=== PATIENT | female | born 1990 | race African-American/Black ===

== ENCOUNTER 2020-04-14 07:18 | Inpatient (IN) | payer OTHER ==
[~2020-04-14] VITALS: Ht 152.4 cm; Wt 89.8 kg
[~2020-04-14 07:18] MED LIST: CIPRO500 MG PO; DOXYCYCLINE 10100 MG PO; IBUPROFEN 600600 M1 PO; MIRENA1 EACH IMPLANT; NAPROSYN500 MG PO; NOHOMEMEDICATIONS; NORFLEX100 MG PO; ZOFRAN ODT4 MG DISSOLVE
[2020-04-14 07:26] VITALS: BP 138/78
[2020-04-14] MEDS ORDERED: ERYTHROMYCIN E3.5 G2 OPHTHALMIC (07:31)
[2020-04-14] MEDS ORDERED: RAYOS5 MG PO (07:31)
[2020-04-14] MEDS ORDERED: CEFDINIR300 MG PO (07:32)
[2020-04-14 08:22] LABS: HEMATOCRIT 38.1 % (37.0-47.0); HEMOGLOBIN 13.3 gm/dL (12.0-15.0); MCH 29.1 pg (26.0-34.0); MCHC 34.9 g/dL (28.0-37.0); MCV 83.5 fL (80.0-100.0); MPV 8.9 fl. (7.2-11.1); NUCLEATED RBCS 0 /100WBC; PLATELET COUNT* 143 thou/uL (150-400); RBC 4.57 mil/uL (4.20-5.00); RDW-CV 13.6 % (10.5-14.5); WBC 14.2 thou/uL (4.0-11.0)
[2020-04-14 08:27] LABS: CALCIUM 8.6 mg/dL (8.5-10.1); CREATININE 1.1 mg/dL (0.6-1.3); POTASSIUM 3.1 mmol/L (3.5-5.1)
[2020-04-14 08:31] LABS: ALBUMIN 3.6 g/dL (3.4-5.0); TOTAL BILIRUBIN 0.9 mg/dL (<0.1-1.0); TOTAL PROTEIN 8.5 g/dL (6.4-8.2)
[2020-04-14 09:36] LABS: ABSOLUTE EOSINOPHILS 0.3 thou/uL (0.0-0.7); ABSOLUTE LYMPHOCYTES 0.7 thou/uL (0.8-5.3); ABSOLUTE NEUTROPHILS 13.2 thou/uL (1.6-8.1); PLATELET ESTIMATE ADEQUATE
[2020-04-14 11:20] VITALS: BP 151/95
[2020-04-14 11:35] VITALS: BP 146/83
--- NOTE | 2020-04-14 12:06 | NUR ---
PT ADMITTED WITH PERIORBITAL EDEMA TO RIGHT EYE AND MOVING TOWARDS LEFT EYE. RIGHT EYE COMPLETELY SHUT, CANNOT OPEN IT. PT ALERT AND ORIENTED. PT ON ROOM AIR, VITALS STABLE. PT PAIN 10/10, ICE GIVEN TO REDUCE PAIN AT THIS TIME. PICTURES TAKEN OF EDEMA IN BOTH EYES. PT ORIENTED TO ROOM. MEDS GIVEN ORDERED. PT RESTING IN BED AND WISHES TO TAKE A NAP. FALL RISK PRECAUTIONS IN PLACE. WILL CONTINUE TO MONITOR.
[2020-04-14 15:39] VITALS: BP 156/99
--- NOTE | 2020-04-14 17:00 | NUR ---
PT REMAINED ALERT AND ORIENTED. PT RESTING IN BED. PT HAS A LOW TEMP FEVER OF 100.7, WILL RECHECK, MEDS GIVEN ORDERED. FALL RISK PRECAUTIONS IN PLACE. HOURLY ROUNDING COMPLETED. WILL CONTINUE TO MONITOR.
[2020-04-14 19:45] VITALS: BP 142/93
--- NOTE | 2020-04-15 03:24 | NUR ---
PATIENT HAS REMAINED ALERT AND ORIENTED X 4 THROUGHOUT THE SHIFT AND RESTING QUIETLY ON HOURLY ROUNDS. RIGHT EYE REMAINS ESSENTIALLY SWOLLEN SHUT. LEFT EYE (AND PER-ORBITAL) SWOLLEN BUT NO VISUAL LOSS. ORDERED MEDICATIONS INCLUDING BENADRYL, STEROIDS AND ANTIBIOTICS PROVIDED ORDERED. PATIENT ALSO RECEIVED TYLENOL AND TRAMADOL FOR EYE DISCOMFORT. ICE PACK KEPT COLD AND COOL WATER CLOTHES AVAILABLE AT BEDSIDE. VITAL SIGNS STABLE. CONTINUE TO MONITOR.
--- NOTE | 2020-04-15 05:25 | NUR ---
AM ANTIBIOTIC COMPLETED. PATIENT FEELS SWELLING AROUND RIGHT EYE SOMEWHAT IMPROVED BUT HAS SHIFTED TO RIGHT CHEEK. TRAMADOL EARLY AM FOR PAIN. NO OTHER CHANGES FROM PREVIOUS ENTRY. HOURLY ROUNDS COMPLETED. CONTINUE TO MONITOR.
[2020-04-15 07:49] LABS: HEMATOCRIT 37.1 % (37.0-47.0); MCH 29.3 pg (26.0-34.0); MCV 83.5 fL (80.0-100.0); MPV 9.5 fl. (7.2-11.1); RBC 4.44 mil/uL (4.20-5.00); RDW-CV 13.7 % (10.5-14.5); WBC 13.9 thou/uL (4.0-11.0)
[2020-04-15 07:58] LABS: CALCIUM 8.6 mg/dL (8.5-10.1); CREATININE 1.1 mg/dL (0.6-1.3); POTASSIUM 3.8 mmol/L (3.5-5.1)
[2020-04-15 08:15] VITALS: BP 161/86
[2020-04-15 16:58] VITALS: BP 143/88
[2020-04-15 20:00] VITALS: BP 127/82
--- NOTE | 2020-04-15 20:09 | NUR ---
I ASSUMED CARE OF THE PATIENT AT 0700. SHE IS ALERT AND ORIENTED X4 AND IS UP AD PURA. SHE IS STEADY ON HER FEET. BED IS IN THE LOW LOCKED POSITION AND CALL LIGHT IS IN REACH. HOURLY ROUNDING IS COMPLETED AND PATIENT NEEDS ARE MET. PAIN IS MANAGED WITH PRN MEDS. IV INFILTRATED AND NOC HOUSE SUP WAS ABLE TO ESTABLISH NEW ACCESS. ICE PACK AND COOL WASH CLOTHES WERE OFFERED ALL SHIFT. SHE IS CURIOUS ABOUT GETTING HER FMLA PAPERS FILLED OUT SO SHE DOESN'T LOSE HER JOB. DR HAYS STOPPED IN LATER IN THE DAY WHEN THE PATIENT REQUESTED THAT SHE SEE THE DIFFERENCE IN HER SWELLING. NEW ORDERS WERE OBTAINED. SHE IS FROM HOME. WILL CONTINUE TO MONITOR.
--- NOTE | 2020-04-16 05:03 | NUR ---
PT SLEPT WELL OVERNIGHT, RECEIVED IV ABX, BENADRYL, STEROIDS ORDERED. USING ICE PACK AND WET COOL COMPRESSES TO FACE FOR COMFORT AND TO REDUCE EDEMA. UP AD PURA IN ROOM. L HAND SL IV. ID FOLLOWING FOR ABX TREATMENT. AM LABS. ABLE TO USE CALL LITE AND MAKE NEEDS KNOWN.
--- NOTE | 2020-04-16 07:55 | CON ---
[address] [address] CONSULTATION Name: CHARMAINE STRANGE Room: [address] IN M.R.#: [id number] Admission: 04/14/20 Attend Phys: Catia Dewitt MD Discharge: Date of : 86 Report #: [id number] THIS REPORT FOR: //name// cc: ARIANNE Manley family physician/PCP ARIANNE - Sindhu family physician/PCP ~ THIS REPORT FOR: //name// CC: ARIANNE physician/PCP Catia Dewitt DATE OF SERVICE: 04/15/2020 INFECTIOUS DISEASE CONSULTATION ATTENDING PHYSICIAN: Dr. Dewitt. REASON FOR EVALUATION: Suspected increase of right-sided preseptal cellulitis. HISTORY OF PRESENT ILLNESS: Chart reviewed, the patient examined. This is a 29-year-old woman without significant medical history who believes she sustained an injury, right upper eyelid was bitten by a spider the day prior to her admission, developed significant inflammatory changes including swelling. Serial photographs suggest mostly localized to the upper lid then became a periorbital involvement and then it extended to the left side as described it as painful, it is swollen and the extent that she is unable to open it. Had some fever while she was here. Denies significant pulmonary or gastrointestinal related complaints. She was empirically started on therapy with vancomycin and ceftriaxone. She is not toxic. Imaging suggested more diffuse edema as opposed to anything localized, no fluid collections. ALLERGIES: None known. MEDICATIONS: Include loratadine, pantoprazole, vancomycin, enoxaparin, ibuprofen, tramadol, methylprednisolone, famotidine and ceftriaxone. PAST MEDICAL HISTORY: Otherwise unremarkable . SOCIAL HISTORY: She smokes half-pack per day. No illicit drug use. Occasional ethanol. FAMILY HISTORY: Noncontributory. REVIEW OF SYSTEMS: Otherwise, unremarkable 10-point review of system with exception of the above. PHYSICAL EXAMINATION: [place] [id number] CONSULTATION Name: CHARMAINE STRANGE Room: [address] IN [facility]#: [id number] Admission: 04/14/20 Attend Phys: Catia Dewitt MD Discharge: Date of : 86 Report #: [id number] GENERAL: She is alert, cooperative and appropriate. She is in [id number] distress. She is sitting up in a chair. She is well-nourished. VITAL SIGNS: T-max 100.7, more recently 99.6, pulse 84, respirations 18, blood pressure 142/93. SKIN: Warm, dry. HEENT: Remarkable for marked inflammatory changes noted with prominent swelling around the right side of the face in particular periorbital area that extends across the midline. It is tender, able to partially open the eye, she can see. NECK: Supple. LUNGS: Clear to auscultation bilaterally. HEART: Regular rate and rhythm without murmur. ABDOMEN: Soft, nontender, nondistended. EXTREMITIES: No cyanosis. GENITOURINARY AND RECTAL: Deferred. LABORATORY DATA: Sed rate of 24. CRP of 147. Blood cultures sterile thus far. Electrolytes: Sodium 139, potassium 3, chloride 106, bicarbonate 27, anion gap of 6, BUN and creatinine of 14 and 1.1, glucose of 135. Estimated GFR of 70. CBC: White count of 13.9, hemoglobin and hematocrit of 13.0 and 37.1, platelets of 138. A CT of the sinuses, diffuse significant soft tissue swelling and subcutaneous thickening and stranding around the right frontal, right parietal, right periorbital and right facial soft tissues consistent with focal inflammation, no fluid collection. Lactic acid 1.6. Liver functions otherwise unremarkable. Total protein of 8.5, albumin of 3.6. test negative. assessment and plan: Preseptal cellulitis with periorbital inflammation involving the right-sided. Continue empiric antimicrobial therapy, I think the way the evidence really favors an infectious etiology and I guess cannot entirely exclude a hypersensitivity, although it would be somewhat asymmetric and localized. She is on corticosteroids as well. Continue to monitor expectantly. At this point, she is not toxic, monitor any signs and symptoms. We will add incentive spirometry. <ELECTRONICALLY SIGNED> By: Brooks Silva MD 04/16/20 [id number] Silva MD /nt
[2020-04-16 08:02] VITALS: BP 173/99
[2020-04-16 08:35] LABS: HEMOGLOBIN 12.6 gm/dL (12.0-15.0); MCH 29.1 pg (26.0-34.0); MCHC 35.1 g/dL (28.0-37.0); MCV 82.9 fL (80.0-100.0); RBC 4.34 mil/uL (4.20-5.00); RDW-CV 13.5 % (10.5-14.5); WBC 14.9 thou/uL (4.0-11.0)
[2020-04-16 08:53] LABS: ALBUMIN 2.9 g/dL (3.4-5.0); CALCIUM 8.9 mg/dL (8.5-10.1); CREATININE 1.1 mg/dL (0.6-1.3); MAGNESIUM 2.4 mg/dL (1.8-2.4); TOTAL BILIRUBIN 0.6 mg/dL (<0.1-1.0); TOTAL PROTEIN 7.5 g/dL (6.4-8.2)
--- NOTE | 2020-04-16 14:38 | NUR ---
SW met with pt who is requesting to transfer to [facility] and other option of as well for a second opinion. Pt said that she has been on iv abx since Wednesday and she feels as if her symptoms are getting worse. SW called [facility] and submitted transfer request and then they declined due to not offering anything different than what [facility] can do. SW called transfer team and submitted for transfer request and they are still reviewing referral. SW to continue to follow to assist with safe dc planning. Pt lives at home with sig other and child(david). Pt has a mother who lives in area.
[2020-04-16 16:00] VITALS: BP 141/86
--- NOTE | 2020-04-16 16:01 | NUR ---
ASSUMED CARE OF PT AROUND 0730 THIS AM. REFER TO ASSESSMENT. PT ADAMANT TO HAVE IV IN LT HAND REMOVED THIS AM D/T PAIN. IV ACCESS TEAM CONTACTED AND NEW IV ACCESS STARTED TO RT FA. PT TOLERATED WELL. PT REQUESTING TO BE TRANSFERRED TO ANOTHER FACILITY TO OBTAIN A SECOND OPINION ON FACIAL CELLULITIS AND TREATMENT. CASE MANAGEMENT ATTEMPTED [facility] AND [facility]. [facility] DENIED TRANSFER. AWAITING [facility] ANSWER. PT HAD BLISTER TO RT EYE OPEN THIS SHIFT. PHYSICIAN NOTIFIED AND NEW ORDER OBTAINED FOR TRIPLE ABT OINTMENT PRN. NO OTHER CONCERNS AT THIS TIME. CLWR. WCTM.
[2020-04-16 19:45] VITALS: BP 137/85
[2020-04-17 05:27] LABS: HEMATOCRIT 34.4 % (37.0-47.0); MCH 28.8 pg (26.0-34.0); MCV 82.4 fL (80.0-100.0); MPV 9.9 fl. (7.2-11.1); RBC 4.17 mil/uL (4.20-5.00); RDW-CV 13.6 % (10.5-14.5); WBC 21.3 thou/uL (4.0-11.0)
[2020-04-17 05:38] LABS: ALBUMIN 2.8 g/dL (3.4-5.0); CALCIUM 8.3 mg/dL (8.5-10.1); MAGNESIUM 2.4 mg/dL (1.8-2.4); POTASSIUM 3.8 mmol/L (3.5-5.1); TOTAL BILIRUBIN 0.6 mg/dL (<0.1-1.0); TOTAL PROTEIN 7.4 g/dL (6.4-8.2)
--- NOTE | 2020-04-17 06:56 | NUR ---
PT AWAKENED FOR MEDS THIS MORNING AND CO INCREASED SWELLING TO LIPS AND UNDER CHIN, ALSO COMPLAINED OF FEELING OF A LUMP IN HER THROAT WHEN SWALLOWING. DENIES TROUBLE BREATHING, ROOM AIR SAT 100%. TAKING PILLS WHOLE WITH WATER. PAGE PLACED TO DR AND ORDERS RECEIVED. WILL CONTINUE TO MONITOR AND REPORT TO ONCOMING RN. CALL LITE IN EASY REACH, IV MEDS GIVEN ORDERED OVERNIGHT. R FA IV SL, ABX GIVEN ORDERED. PT UP AD PURA IN ROOM. DENIES PAIN.
[2020-04-17 08:25] VITALS: BP 149/71
--- NOTE | 2020-04-17 09:20 | NUR ---
PATIENT WANTING TO LEAVE AMA TO . DR HAYS NOTIFIED. AMA PAPERWORK SIGNED. PATIENT REMOVED IV INDEPENDENTLY. PATIENT WALKED TO EXIT. LEFT WITH FAMILY.
--- NOTE | 2020-04-17 11:26 | NUR ---
SW was informed by Dr Dewitt that pt decided to leave AMA after requests for transfer had been denied by [facility] and [facility].
== END 2020-04-17 09:20 | disposition left against medical advice (07) | DRG 603 ==
LOC: M.ERS 07:18 → M.TBA-ER 09:43 → M.3W 09:43
PROVIDERS: Personal Emergency Response Attendant; ADMIT Internal Medicine; ATTEND Internal Medicine
DX: L03.213 Periorbital cellulitis (principal); R65.10 Systemic inflammatory response syndrome (SIRS) of non-infectious origin without acute organ dysfunction; F17.210 Nicotine dependence, cigarettes, uncomplicated; S00.261A Insect bite (nonvenomous) of right eyelid and periocular area, initial encounter; W57.XXXA Bitten or stung by nonvenomous insect and other nonvenomous arthropods, initial encounter; Y93.89 Activity, other specified; Y92.89 Other specified places as the place of occurrence of the external cause; Y99.8 Other external cause status; Z98.891 History of uterine scar from previous surgery; Z79.899 Other long term (current) drug therapy; Z72.89 Other problems related to lifestyle